=== PATIENT | female | born 1975 | race Caucasian/White ===

== ENCOUNTER 2019-03-25 12:27 | Outpatient (CLI) | payer MEDICAID, SELFPAY ==
--- NOTE | ~2019-03-25 | MR_ITS ---
EXAMINATION: MR brain/brain stem wo/w con DATE: 03/25/2019 13:28 INDICATION: Multiple sclerosis. TECHNIQUE: Magnetic resonance imaging (MRI) of the brain and brainstem was performed without and with 16 mm MultiHance intravenous contrast. Sequences included sagittal and axial T1-weighted FLAIR, axia l T1-weighted FSE, axial diffusion-weighted FS EPI, sagittal T2-weighted FLAIR, axial T2*-weighted GR E, axial T2-weighted FLAIR Propeller, and axial T2-weighted Propeller. Postcontrast sequences include d axial, coronal, and sagittal T1-weighted FSE. Apparent diffusion coefficient (ADC) maps were create d. COMPARISON: None. FINDINGS: There are approximately 12 total lesions of increased T2-weighted signal intensity in the b rain. Of these lesions, approximately 3 are periventricular, one is juxtacortical, and none are infra tentorial. None of the lesions enhance. There is no acute ischemic infarct or intracranial hemorrhage . The ventricles are normal in size. There is mild mucosal thickening in the paranasal sinuses. The m astoid air cells are normal. The orbits are normal. IMPRESSION: 1. Mild nonspecific cerebral white matter disease. 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 Reviewed, dictated and finalized at location A. [employer] IMPRESSION: 1. Mild nonspecific cerebral white matter disease. The differential diagnosis i ncludes premature chronic small vessel ischemic disease (especially if the filipe ent has cardiovascular risk factors), demyelinating disease such as multiple sc lerosis, drug abuse, vasculitis, or reactive astrocytosis (gliosis) secondary t o nonspecific etiology.
[2019-03-25 13:01] LABS: Blood Urea Nitrogen 9 mg/dL (8-26); Estimated Glomerular Filt Rate > 60
== END 2019-03-25 12:28 | disposition home or self-care (01) ==
PROVIDERS: Visit Provider Psychiatry & Neurology Neurology
DX: G35 Multiple sclerosis (principal); R90.82 White matter disease, unspecified
CPT/HCPCS: 70553; A9577

== ENCOUNTER 2019-08-20 08:50 | Outpatient (CLI) | payer OTHER, SELFPAY ==
[2019-08-14 12:08] VITALS: BMI 31.8
[2019-08-20] VITALS (9 sets, daily range): BP systolic 101–128; BP diastolic 63–73; PULSE 56–67; RESP 14–17; O2SAT 95–100
--- NOTE | ~2019-08-20 | XR_ITS ---
EXAMINATION: XR lumbar puncture diagnostic DATE: 08/20/2019 10:47 INDICATION: Multiple sclerosis with tingling in the back, feet and hands TECHNIQUE: The procedure including the risks and benefits was discussed with the patient. Risks discu ssed included spinal headache, cerebrospinal fluid leak, bleeding, and infection. The patient underst ood the risks and agreed to proceed. A timeout was performed to verify the patient's name, date of , and procedure to be performed. The skin overlying the L4-L5 level was prepped and draped in usual sterile fashion. Subcutaneous 1% lidocaine was used for local anesthesia. A 22 gauge spinal n eedle was advanced under fluoroscopic guidance. The needle was removed and the entry site was cleaned and dressed. There were no immediate complications. The patient was taken to the nursing area for o bservation. A single fluoroscopic image was recorded. Fluoroscopy exposure time was 0.1 minutes. FINDINGS: Real-time fluoroscopy demonstrates the needle at the L4-L5 level. Opening pressure was 17 c m water. (Normal range is variably defined as 6-20 cm water and up to 25 cm water in obese patients. Pressure >25 cm water is one of the modified Dandy criteria for idiopathic intracranial hypertension) . 15 mL of clear, colorless fluid was collected in 4 tubes. IMPRESSION: 1. Successful fluoro-guided lumbar puncture. Reviewed, dictated and finalized at location A.
[2019-08-20 09:18] LABS: Mean Platelet Volume 9.7 fl (7.4-10.4); Platelet Count Result 249 k/mm3 (150-375)
[2019-08-20 09:29] LABS: INR 0.9; Prothrombin Time 11.9 Seconds (11.1-14.7)
[2019-08-20 10:58] LABS: Glucose CSF 47 mg/dL (40-70); Total Protein CSF 67 mg/dL (12-60)
[2019-08-20 11:10] LABS: Appearance CSF Clear (Clear); CSF source CSF; Color CSF Colorless (Colorless)
[2019-08-20 11:12] LABS: Nucleated Cell CSF 3 /uL (0-5); Red Blood Cell CSF 3 (0-2)
--- NOTE | 2019-08-20 15:42 | SUR.PHASEII ---
[address] sim a message on pt condition for possible discharge 1305 dr sim called back, update given, wants to see pt prior to discharge 1315 dr sim at bedside to see pt, ok for discharge.
--- NOTE | 2019-08-20 16:00 | SUR.PHASEII ---
from 1430 to 1550 tiffany avendano rn, was charting under brie hunter rn.
[2019-08-21 07:43] LABS: Lymphocytes CSF 100 % (40-80)
[2019-08-21 15:39] LABS: VDRL Quantitative CSF Nonreactive (Nonreactive)
[2019-08-23 03:24] LABS: Angiotensi Converting Enzy CSF 4 U/L (<=15)
[2019-08-24 03:00] LABS: Albumin, CSF 34.1 mg/dL (8.0-42.0); Albumin, Serum 4.1 g/dL (3.5-5.2); IgG Index, CSF 0.83 (<0.66); IgG, CSF 6.8 mg/dL (0.8-7.7); Immunoglobulin G, Serum 988 mg/dL (600-1640); Myelin Basic Protein, CSF <2.0 mcg/L (2.0-4.0)
== END 2019-08-20 13:23 | disposition home or self-care (01) ==
PROVIDERS: Radiology Diagnostic Radiology; PCP Family Medicine; Visit Provider Psychiatry & Neurology Neurology
DX: G35 Multiple sclerosis (principal)
CPT/HCPCS: 36415; 62328; 82040; 82042; 82164; 82784; 82945; 83873; 83916; 84157; 85049; 85610; 86592; 87070; 88108; 89051